=== PATIENT | female | born 1955 | race Two or more races ===

== ENCOUNTER 2023-12-17 19:41 | Inpatient (IN) | payer OTHER, MEDICAID ==
[~2023-12-17] VITALS: Ht 162.6 cm; Wt 98.9 kg
[2023-12-17 20:09] LABS: BASOPHILS # (AUTO) 0.1 K/uL (0.0-0.2); BASOPHILS % (AUTO) 0.6 % (0.0-2.0); EOSINOPHILS # (AUTO) 0.2 K/uL (0.0-0.7); EOSINOPHILS % (AUTO) 1.4 % (0.0-6.0); HEMATOCRIT 41 % (33-45); HEMOGLOBIN 13.5 g/dL (11.5-14.8); LYMPHOCYTES # (AUTO) 1.5 K/uL (0.8-4.8); LYMPHOCYTES % (AUTO) 9.5 % (20.0-44.0); MEAN CORPUSCULAR HEMOGLOBIN 29 PG (26.0-33.0); MEAN CORPUSCULAR HGB CONC 33 g/dl (31.0-36.0); MEAN CORPUSCULAR VOLUME 88 fL (82-100); MONOCYTES # (AUTO) 1.2 K/uL (0.1-1.30); MONOCYTES % (AUTO) 7.5 % (2.0-12.0); NEUTROPHILS # (AUTO) 13.1 K/uL (1.8-8.9); PLATELET COUNT (AUTO) 235 K/uL (150-450); RED BLOOD CELL COUNT(AUTO) 4.67 MIL/uL (4.0-5.2); RED CELL DISTRIBUTION WIDTH 14.6 % (11.5-15.0); WHITE BLOOD COUNT (AUTO) 16.2 K/uL (4.3-11.0)
[2023-12-17 20:18] LABS: CALCIUM, SERUM 8.9 mg/dL (8.5-10.1); CARBON DIOXIDE 25 mmol/L (21-32); CHLORIDE 100 mmol/L (98-107); GLUCOSE 229 mg/dL (74-106); POTASSIUM 4.2 mmol/L (3.5-5.1); SODIUM SERUM 139 mmol/L (136-145); UREA NITROGEN, BLOOD 12 mg/dL (7-18)
[2023-12-17] MEDS ORDERED: ONDANSETRON HCL/PF 4 MG/2 ML VIAL ONE (20:26)
[2023-12-17] MEDS ORDERED: MORPHINE SULFATE INJ 4 MG/ML DISP.SYRIN ONE (20:27)
[2023-12-17] MEDS: ONDANSETRON HCL/PF 4 MG/2 ML VIAL IVP ONE (20:33)
[2023-12-17] MEDS: MORPHINE SULFATE INJ 2 MG/ML DISP.SYRIN IV ONE (20:33)
[2023-12-17 23:00] VITALS: BP 144/86; TEMP 98.2; O2SAT 95
[2023-12-18] VITALS (8 sets, daily range): BP systolic 120–145; BP diastolic 63–86; TEMP 98.2–98.6; O2SAT 94–96
[2023-12-18] MEDS: NITROGLYCERIN 0.4 MG/TAB BOTTLE SL PRN (01:50)
[2023-12-18] MEDS ORDERED: MAG HYDROX/AL HYDROX/SIMETH 30 ML UDC PO PRN (02:30)
[2023-12-18] MEDS ORDERED: HYDROCODONE/APAP 5/325MG TABLET PO PRN (02:30)
[2023-12-18] MEDS ORDERED: NITROGLYCERIN 0.4 MG/TAB BOTTLE SL PRN (02:30)
[2023-12-18] MEDS ORDERED: TEMAZEPAM 15 MG CAPSULE PO PRN (02:30)
[2023-12-18] MEDS ORDERED: ONDANSETRON HCL/PF 4 MG/2 ML VIAL IVP PRN (02:30)
[2023-12-18] MEDS ORDERED: ACETAMINOPHEN 325 MG TABLET PO PRN (02:30)
[2023-12-18] MEDS ORDERED: MAGNESIUM HYDROXIDE 30 ML UDC PO PRN (02:30)
[2023-12-18] MEDS ORDERED: DEXTROSE 50%-WATER 50 ML DISP.SYRIN IV PRN (02:30)
[2023-12-18] MEDS ORDERED: Z GUARD REMEDY 4 OZ OINT TP PRN (02:30)
[2023-12-18] MEDS: MORPHINE SULFATE INJ 2 MG/ML DISP.SYRIN IV PRN (02:50)
[2023-12-18] MEDS: ENOXAPARIN SODIUM 40 MG/0.4 ML DISP.SYRIN SQ SCH (02:52)
[2023-12-18] MEDS ORDERED: LEVO125T PO (04:09)
[2023-12-18] MEDS ORDERED: INSU100V7 SQ (04:09)
[2023-12-18] MEDS ORDERED: SIMV-46 PO (04:09)
[2023-12-18] MEDS ORDERED: FLUO90CA4 PO (04:09)
[2023-12-18] MEDS ORDERED: METO-357 PO (04:09)
[2023-12-18] MEDS ORDERED: MELA3CAP2 PO (04:09)
[2023-12-18] MEDS ORDERED: GLIP5TAB13 PO (04:09)
[2023-12-18] MEDS ORDERED: LISI40TA13 PO (04:09)
[2023-12-18] MEDS ORDERED: LISPRO (04:09)
[2023-12-18] MEDS ORDERED: IBUP-1955 PO (04:09)
[2023-12-18] MEDS ORDERED: ANAS5POW2 MC (04:09)
[2023-12-18] MEDS: BLOOD SUGAR DIAGNOSTIC 1 EACH STRIP IN SCH (06:53)
[2023-12-18] MEDS: INSULIN REGULAR, HUMAN 100 UNIT/ML 3 ML VIAL SQ PRN (06:54)
[2023-12-18] MEDS: ASPIRIN 81 MG TAB.CHEW PO SCH (08:40)
[2023-12-18] MEDS: ATORVASTATIN 10 MG TABLET PO SCH (08:40)
[2023-12-18] MEDS: PANTOPRAZOLE 40 MG TABLET.DR PO SCH (08:40)
[2023-12-18] MEDS ORDERED: ENOXAPARIN SODIUM 60 MG/0.6 ML DISP.SYRIN SQ ONE (09:00)
[2023-12-18 09:15] LABS: BASOPHILS # (AUTO) 0.1 K/uL (0.0-0.2); BASOPHILS % (AUTO) 0.4 % (0.0-2.0); EOSINOPHILS % (AUTO) 0.2 % (0.0-6.0); HEMATOCRIT 41 % (33-45); HEMOGLOBIN 13.3 g/dL (11.5-14.8); LYMPHOCYTES # (AUTO) 1.8 K/uL (0.8-4.8); LYMPHOCYTES % (AUTO) 12.3 % (20.0-44.0); MEAN CORPUSCULAR HEMOGLOBIN 29 PG (26.0-33.0); MEAN CORPUSCULAR HGB CONC 32 g/dl (31.0-36.0); MEAN CORPUSCULAR VOLUME 89 fL (82-100); MONOCYTES # (AUTO) 1.3 K/uL (0.1-1.30); MONOCYTES % (AUTO) 9.1 % (2.0-12.0); NEUTROPHILS # (AUTO) 11.4 K/uL (1.8-8.9); PLATELET COUNT (AUTO) 227 K/uL (150-450); RED BLOOD CELL COUNT(AUTO) 4.62 MIL/uL (4.0-5.2); RED CELL DISTRIBUTION WIDTH 14.9 % (11.5-15.0); WHITE BLOOD COUNT (AUTO) 14.6 K/uL (4.3-11.0)
[2023-12-18 10:04] LABS: CHOLESTEROL 141 mg/dL (<200); HDL CHOLESTEROL 65 mg/dL (40-60); LDL 61 mg/dL (0-99); TRIGLYCERIDES 112 mg/dL (30-150)
[2023-12-18] MEDS: ENOXAPARIN SODIUM 60 MG/0.6 ML DISP.SYRIN SQ ONE (10:19)
[2023-12-18 10:42] LABS: CALCIUM, SERUM 9.5 mg/dL (8.5-10.1); POTASSIUM 4.5 mmol/L (3.5-5.1)
[2023-12-18 10:48] LABS: ALBUMIN 3.6 g/dL (3.4-5.0); BILIRUBIN,TOTAL 0.7 mg/dL (0.2-1.0); PHOSPHORUS 3.6 mg/dL (2.5-4.9); TOTAL PROTEIN, SERUM 8.3 g/dL (6.4-8.2)
[2023-12-18 10:55] LABS: MAGNESIUM 2.5 mg/dL (1.8-2.4)
[2023-12-18] MEDS: METOPROLOL TARTRATE 50 MG TABLET PO SCH (11:28)
[2023-12-18] MEDS ORDERED: IOHEXOL-350 100 ML VIAL IV ONE (13:28)
[2023-12-18] MEDS ORDERED: NITROGLYCERIN 0.4 MG/TAB BOTTLE ONE (13:29)
[2023-12-18] MEDS ORDERED: CT SWABBABLE VALVE TRANS SET 1 EA INFUS.SET MC ONE (13:29)
[2023-12-18] MEDS ORDERED: METOPROLOL TARTRATE INJ 5 MG/5 ML AMPUL ONE ×3 (13:29→14:21)
[2023-12-18] MEDS ORDERED: IV NS 0.9% 250 ML IV ONE (13:30)
[2023-12-18] MEDS: METOPROLOL TARTRATE INJ 5 MG/5 ML AMPUL IVP PRN (13:50)
[2023-12-18] MEDS: NITROGLYCERIN 0.4 MG/TAB BOTTLE SL ONE (14:36)
[2023-12-18 17:21] LABS: APPEARANCE,URINE SLIGHTLY CLOUDY (CLEAR); BILIRUBIN,URINE NEGATIVE (NEGATIVE); BLOOD, URINE NEGATIVE Ery/uL (NEGATIVE); COLOR,URINE YELLOW (YELLOW); KETONES,URINE NEGATIVE (NEGATIVE); LEUKOCYTE ESTERASE ,URINE 1+ (NEGATIVE); NITRITE, URINE POSITIVE (NEGATIVE); PROTEIN,URINE NEGATIVE (NEGATIVE); UGLUCOSE 1+ mg/dL (NEGATIVE); UROBILINOGEN,URINE 0.2 EU/dL (0.2)
[2023-12-18 17:32] LABS: ADD URINE CULTURE YES; BACTERIA,URINE 2+ /HPF (None Seen); RBC,URINE 0-2 /HPF (0-2); WBC,URINE 21-50 /HPF (0-3)
[2023-12-18] MEDS ORDERED: MELATONIN PO SCH (18:00)
[2023-12-18] MEDS ORDERED: ENOXAPARIN SODIUM 100 MG/ML DISP.SYRIN SQ SCH (21:00)
[2023-12-18] MEDS: ENOXAPARIN SODIUM 100 MG/ML DISP.SYRIN SQ SCH (21:09)
[2023-12-19] VITALS (8 sets, daily range): BP systolic 107–146; BP diastolic 52–82; TEMP 98.1–98.6; O2SAT 92–96
[2023-12-19 06:41] LABS: BASOPHILS % (AUTO) 0.5 % (0.0-2.0); EOSINOPHILS # (AUTO) 0.2 K/uL (0.0-0.7); EOSINOPHILS % (AUTO) 1.8 % (0.0-6.0); HEMATOCRIT 38 % (33-45); HEMOGLOBIN 12.6 g/dL (11.5-14.8); LYMPHOCYTES # (AUTO) 2.2 K/uL (0.8-4.8); LYMPHOCYTES % (AUTO) 23.7 % (20.0-44.0); MEAN CORPUSCULAR HEMOGLOBIN 29 PG (26.0-33.0); MEAN CORPUSCULAR HGB CONC 33 g/dl (31.0-36.0); MEAN CORPUSCULAR VOLUME 89 fL (82-100); MONOCYTES # (AUTO) 0.9 K/uL (0.1-1.30); MONOCYTES % (AUTO) 9.9 % (2.0-12.0); NEUTROPHILS # (AUTO) 5.9 K/uL (1.8-8.9); NEUTROPHILS % (AUTO) 64.1 % (43.0-81.0); PLATELET COUNT (AUTO) 188 K/uL (150-450); RED BLOOD CELL COUNT(AUTO) 4.28 MIL/uL (4.0-5.2); RED CELL DISTRIBUTION WIDTH 14.8 % (11.5-15.0); WHITE BLOOD COUNT (AUTO) 9.2 K/uL (4.3-11.0)
[2023-12-19 06:47] LABS: CALCIUM, SERUM 9.3 mg/dL (8.5-10.1); CREATININE 0.9 mg/dL (0.6-1.3); MAGNESIUM 2.4 mg/dL (1.8-2.4); PHOSPHORUS 2.9 mg/dL (2.5-4.9)
[2023-12-19 07:02] LABS: THYROID STIMULATING HORMONE 2.1 uIU/mL (0.358-3.74)
[2023-12-19] MEDS: LEVOTHYROXINE SODIUM 125 MCG TABLET PO SCH (09:12)
[2023-12-19] MEDS: FLUOXETINE HCL 20 MG CAPSULE PO SCH (09:12)
[2023-12-19] MEDS: LISINOPRIL (20MG) 20 MG TABLET PO SCH (09:13)
[2023-12-19] MEDS ORDERED: ASPI-1169 PO (13:02)
[2023-12-19] MEDS ORDERED: NITR100C6 PO (14:05)
[2023-12-19] MEDS: CEFTRIAXONE 1 G in IV D5W 50 ML IV SCH (14:43)
== END 2023-12-19 21:24 | disposition home or self-care (01) | DRG 281 ==
LOC: ER 19:43 → TELE 21:42 → MED 12-19 10:39
PROVIDERS: ADMIT Nurse Practitioner Family; ATTEND Nurse Practitioner Family
DX: I25.118 Atherosclerotic heart disease of native coronary artery with other forms of angina pectoris (principal); N39.0 Urinary tract infection, site not specified; I21.A1 Myocardial infarction type 2; E11.9 Type 2 diabetes mellitus without complications; E78.5 Hyperlipidemia, unspecified; I10 Essential (primary) hypertension; Z90.12 Acquired absence of left breast and nipple; Z85.42 Personal history of malignant neoplasm of other parts of uterus; Z85.3 Personal history of malignant neoplasm of breast; I70.0 Atherosclerosis of aorta; Z90.710 Acquired absence of both cervix and uterus; I44.0 Atrioventricular block, first degree; E66.9 Obesity, unspecified; Z68.37 Body mass index [BMI] 37.0-37.9, adult; Z79.84 Long term (current) use of oral hypoglycemic drugs; Z79.890 Hormone replacement therapy; Z79.4 Long term (current) use of insulin; Z79.899 Other long term (current) drug therapy
CPT/HCPCS: 36415; 71045-TC; 75574; 80048-TC; 80053-TC; 80061-TC; 81001; 82962-TC; 83735-TC; 84100-TC; 84443-TC; 84484-TC; 85025-TC; 87086-TC; 93307-TC; A4223; G0378; J0696; J1650; J1815; J2270; J2405; J3490; J7050; J7060; Q9967